=== PATIENT | female | born 1975 | race Caucasian/White ===

== ENCOUNTER 2021-08-24 17:29 | Emergency (ER) | payer OTHER ==
[~2021-08-24] VITALS: Ht 165.1 cm; Wt 63.5 kg
== END 2021-08-25 00:04 | disposition home or self-care (01) ==
LOC: ER 17:29
DX: A05.9 Bacterial foodborne intoxication, unspecified (principal); R11.10 Vomiting, unspecified; R07.9 Chest pain, unspecified